=== PATIENT | female | born 1950 | race Two or more races ===

== ENCOUNTER 2017-06-20 09:30 | Emergency (ER) | payer MEDICARE, MEDICAID ==
[~2017-06-20] VITALS: Ht 154.9 cm; Wt 83.9 kg
[~2017-06-20 09:30] MED LIST: BENA20TA14; GEMF600T; HYDR-1421; METF-370; PRAVASTATIN
[2017-06-20 09:38] VITALS: BP 153/91
== END 2017-06-20 12:14 | disposition home or self-care (01) ==
LOC: ER 09:30
DX: J20.9 Acute bronchitis, unspecified (principal); I10 Essential (primary) hypertension; E11.9 Type 2 diabetes mellitus without complications; E78.5 Hyperlipidemia, unspecified
CPT/HCPCS: 71046

== ENCOUNTER 2018-07-12 12:12 | Emergency (ER) | payer MEDICARE, MEDICAID ==
[~2018-07-12] VITALS: Ht 167.6 cm; Wt 72.6 kg
[2018-07-12 13:26] VITALS: BP 114/56
[2018-07-12] MEDS ORDERED: MEPERIDINE HCL (50 MG/ML) 1 ML VIAL IM ONE (13:45)
[2018-07-12] MEDS ORDERED: PROMETHAZINE HCL 25 MG/ML 1ML IM ONE (13:45)
[2018-07-12] MEDS ORDERED: KETOROLAC TROMETH 60MG/2ML VIAL IM ONE (14:30)
== END 2018-07-12 14:37 | disposition home or self-care (01) ==
LOC: EDBD 12:12 → ER 12:13
DX: M54.5 Low back pain (principal); G89.29 Other chronic pain; E11.9 Type 2 diabetes mellitus without complications; E78.5 Hyperlipidemia, unspecified; I10 Essential (primary) hypertension
CPT/HCPCS: 96372; 99283; J1885; J2175; J2550

== ENCOUNTER 2022-10-27 16:43 | Emergency (ER) | payer MEDICARE, MEDICAID ==
[~2022-10-27] VITALS: Ht 154.9 cm; Wt 85.0 kg
[~2022-10-27 16:43] MED LIST changes: +BENA-36; -BENA20TA14
[2022-10-27 17:07] VITALS: BP 114/61
[2022-10-27] MEDS ORDERED: HYDR-4902 PO (18:13)
[2022-10-27] MEDS ORDERED: HYDROcodone-ACET 5/325MG TAB PO ONE (18:15)
== END 2022-10-27 18:29 | disposition home or self-care (01) ==
LOC: ER 16:43
DX: S82.832A Other fracture of upper and lower end of left fibula, initial encounter for closed fracture (principal); E11.9 Type 2 diabetes mellitus without complications; E78.5 Hyperlipidemia, unspecified; I10 Essential (primary) hypertension; G89.29 Other chronic pain; X50.9XXA Other and unspecified overexertion or strenuous movements or postures, initial encounter; Y93.01 Activity, walking, marching and hiking; Y92.89 Other specified places as the place of occurrence of the external cause; Y99.8 Other external cause status
CPT/HCPCS: 29515; 73610

== ENCOUNTER 2023-06-20 14:10 | Inpatient (IN) | payer MEDICARE, MEDICAID ==
[~2023-06-20] VITALS: Ht 154.9 cm; Wt 92.9 kg
[2023-06-20 14:56] LABS: Basophils # (auto) 0 10 ^3/uL (0-0.2); Eosinophils # (auto) 0.1 10 ^3/uL (0-0.8); Mean Corpuscular Volume 102.7 fL (80.0-100.0); Monocytes # (auto) 0.3 10 ^3/uL (0-1.3); Neutrophils # (auto) 3.7 10 ^3/uL (1.6-8.6); White Blood Cell 5.5 10^3/uL (4.4-10.8)
[2023-06-20 14:58] LABS: Basophils % (auto) 0.8 % (0.0-2.0); Eosinophils % (auto) 1.4 % (0.0-7.0); Hematocrit 39.7 % (36.0-46.0); Hemoglobin 13.2 g/dL (12.2-16.2); Lymphocytes # (auto) 1.4 10 ^3/uL (0.4-5.4); Lymphocytes % (auto) 25.3 % (10.0-50.0); Mean Corpuscular Hemoglobin 34.1 pg (28.0-32.0); Mean Corpuscular Hgb Conc. 33.2 g/dL (32.0-36.0); Neutrophils % (auto) 66.5 % (37.0-80.0); Nucleated Red Blood Cells % 0.2 %; Red Blood Cells 3.86 10^6/uL (4.0-5.20); Red Cell Distribution Width 13.7 % (11.8-14.3)
[2023-06-20 15:16] LABS: Chloride 108 mmol/L (98-107); Potassium 4.8 mmol/L (3.5-5.1); Sodium 139 mmol/L (136-145)
[2023-06-20 15:17] LABS: Anion Gap 3 (5-15); Calcium 9.8 mg/dL (8.5-10.1); Carbon Dioxide 28 mmol/L (20-30)
[2023-06-20 15:22] LABS: BUN/Creatinine Ratio 12.2 (10.0-20.0); Blood Urea Nitrogen 14 mg/dL (9-23); Glucose 143 mg/dL (74-106)
[2023-06-20] MEDS: ENOXAPARIN SOD 100 MG/1 ML SYRINGE SC ONE (18:16)
[2023-06-20] MEDS ORDERED: ACETAMINOPHEN 325 MG TAB PO PRN (19:15)
[2023-06-20] MEDS ORDERED: DEXTROSE (50%) 50ML SYRG IV PRN (19:15)
[2023-06-20 19:39] LABS: Triglycerides 237 mg/dL (< 150)
[2023-06-20 19:40] LABS: LDL Cholesterol 118 mg/dL (< 100)
[2023-06-20 19:41] LABS: Cholesterol 192 mg/dL (< 200); HDL Cholesterol 45 mg/dL (40-59)
[2023-06-20 21:19] VITALS: PULSE 75; RESP 17; O2SAT 92
[2023-06-20] MEDS: ACCU-CHEK COMFORT CURVE STRIP VI SCH (21:53)
[2023-06-20] MEDS: InsuLIN REG 1unit/0.01ml Soln (100units/ml) SC SCH (21:58)
[2023-06-20] MEDS: GEMFIBROZIL 600 MG TAB PO SCH (21:59)
[2023-06-20] MEDS: ENOXAPARIN SOD 80 MG/0.8ML SYRINGE SC SCH (21:59)
[2023-06-20 23:46] VITALS: BP 109/75; PULSE 68; RESP 18; TEMP 98.9; O2SAT 94
[2023-06-20] MEDS ORDERED: HYDR12.59 PO (23:54)
[2023-06-20] MEDS ORDERED: CYCL-611 PO (23:54)
[2023-06-20] MEDS ORDERED: DULO1CAP6 PO (23:54)
[2023-06-20] MEDS ORDERED: INSU1INJ19 SC (23:54)
[2023-06-20] MEDS ORDERED: [UNRECOGNIZED DRUG - CODE] PO (23:54)
[2023-06-20] MEDS ORDERED: ATEN50TA PO (23:54)
[2023-06-20] MEDS ORDERED: DICL75TA4 PO (23:54)
[2023-06-20] MEDS ORDERED: GABA800T97 PO (23:54)
[2023-06-20] MEDS ORDERED: LOS25T PO (23:54)
[2023-06-21] VITALS (7 sets, daily range): BP systolic 98–116; BP diastolic 53–75; PULSE 69–91; RESP 17–20; TEMP 97.4–98.6; O2SAT 90–97
[2023-06-21] MEDS: HYDROcodone-ACET 5/325MG TAB PO PRN (05:25)
[2023-06-21 07:40] LABS: Alanine Aminotransferase 34 U/L (7-40); Albumin 4.3 g/dL (3.2-4.8); Alkaline Phosphatase 100 U/L (46-116); Anion Gap 7 (5-15); Aspartate Aminotransferase 42 U/L (13-40); BUN/Creatinine Ratio 11.8 (10.0-20.0); Basophils # (auto) 0 10 ^3/uL (0-0.2); Basophils % (auto) 0.5 % (0.0-2.0); Blood Urea Nitrogen 15 mg/dL (9-23); Calcium 9.7 mg/dL (8.5-10.1); Carbon Dioxide 27 mmol/L (20-30); Chloride 108 mmol/L (98-107); Eosinophils # (auto) 0.1 10 ^3/uL (0-0.8); Glucose 126 mg/dL (74-106); Monocytes # (auto) 0.5 10 ^3/uL (0-1.3); Neutrophils # (auto) 2.6 10 ^3/uL (1.6-8.6); Nucleated Red Blood Cells % 0.2 %; Potassium 3.9 mmol/L (3.5-5.1); Sodium 142 mmol/L (136-145)
[2023-06-21 07:41] LABS: Bilirubin, Total 0.6 mg/dL (0.2-1.0); Total Protein 7.4 g/dL (5.7-8.2)
[2023-06-21 07:42] LABS: Eosinophils % (auto) 2.3 % (0.0-7.0); Hematocrit 38.5 % (36.0-46.0); Lymphocytes # (auto) 2.1 10 ^3/uL (0.4-5.4); Lymphocytes % (auto) 38.9 % (10.0-50.0); Mean Corpuscular Hemoglobin 34.6 pg (28.0-32.0); Mean Corpuscular Hgb Conc. 33.7 g/dL (32.0-36.0); Mean Corpuscular Volume 102.5 fL (80.0-100.0); Monocytes % (auto) 8.5 % (0.0-12.0); Neutrophils % (auto) 49.8 % (37.0-80.0); Red Blood Cells 3.75 10^6/uL (4.0-5.20); White Blood Cell 5.3 10^3/uL (4.4-10.8)
[2023-06-21] MEDS: IOHEXOL 350 MG/ML 100ML IJ ONE (08:50)
[2023-06-22] VITALS (7 sets, daily range): BP systolic 96–140; BP diastolic 67–94; PULSE 80–102; RESP 16–20; TEMP 97.4–98.6; O2SAT 92–96
[2023-06-22] MEDS: CYCLOBENZAPRINE HCL 10 MG TAB PO SCH (13:31)
[2023-06-22] MEDS: GABAPENTIN 400 MG CAP PO SCH (13:31)
[2023-06-22] MEDS: HYDROcodone-ACET 10/325MG TAB PO PRN (20:14)
[2023-06-22] MEDS: Diclofenac Sodium 75MG PO SCH (21:58)
[2023-06-22] MEDS: INSULIN LANTUS (GLARGINE) 1 /0.01ml (100units/ml) SC SCH (22:10)
[2023-06-23 05:00] VITALS: BP 93/66; PULSE 84; RESP 18; TEMP 98; O2SAT 92
[2023-06-23 08:20] VITALS: BP 97/59; PULSE 78; RESP 20; TEMP 98.2
[2023-06-23 09:06] VITALS: BP 97/59; PULSE 78; RESP 20; TEMP 98.2; O2SAT 96
[2023-06-23] MEDS: LOSARTAN POTASSIUM 25 MG TAB PO SCH (09:30)
[2023-06-23] MEDS: DULoxetine HCL 30 MG CAP PO SCH (09:31)
[2023-06-23] MEDS: ATENOLOL 50 MG TAB PO SCH (09:31)
[2023-06-23] MEDS: hydroCHLOROthiazide 25 MG TAB PO SCH (09:31)
[2023-06-23] MEDS ORDERED: BENAZEPRIL HCL 20 MG PO SCH (10:00)
[2023-06-23 12:34] VITALS: BP 117/60; PULSE 75; RESP 20; TEMP 98.4; O2SAT 90
[2023-06-23 19:30] VITALS: PULSE 81; RESP 16
[2023-06-23 22:00] VITALS: BP 105/59; PULSE 69; RESP 17; TEMP 97.8; O2SAT 93
[2023-06-24 05:00] VITALS: BP 95/61; PULSE 73; RESP 18; TEMP 98.1; O2SAT 91
[2023-06-24 08:00] VITALS: PULSE 66; RESP 18
[2023-06-24 09:00] VITALS: BP 118/68; PULSE 80; RESP 20; TEMP 98.5; O2SAT 92
[2023-06-24] MEDS ORDERED: APIX5TAB PO (11:17)
[2023-06-24] MEDS ORDERED: HYDR-4902 PO (11:43)
[2023-06-24 12:50] VITALS: BP 103/77; PULSE 68; RESP 20; TEMP 98
[2023-06-24] MEDS ORDERED: TRAM100T32 PO (16:17)
[2023-06-24 17:00] VITALS: BP 98/55; PULSE 84; RESP 18; TEMP 98.1; O2SAT 91
[2023-06-24] MEDS: ENOXAPARIN SOD 80 MG/0.8ML SYRINGE SC ONE (19:46)
[2023-06-24 19:54] VITALS: PULSE 70
[2023-06-24] MEDS ORDERED: APIXABAN 5 MG TAB PO ONE (22:00)
== END 2023-06-24 20:24 | disposition home health service (06) | DRG 197 ==
LOC: EDUNIT# 14:10 → EDBD 14:10 → ER 14:18 → WEST WING 19:03 → OVERFLOW 19:03 → WEST WING 23:12
PROVIDERS: ADMIT Nurse Practitioner Family; ATTEND Internal Medicine
DX: I82.443 Acute embolism and thrombosis of tibial vein, bilateral (principal); E11.9 Type 2 diabetes mellitus without complications; E66.01 Morbid (severe) obesity due to excess calories; E78.5 Hyperlipidemia, unspecified; G89.29 Other chronic pain; I10 Essential (primary) hypertension; Z68.38 Body mass index [BMI] 38.0-38.9, adult; Z79.899 Other long term (current) drug therapy; Z82.49 Family history of ischemic heart disease and other diseases of the circulatory system; Z83.3 Family history of diabetes mellitus; N18.31 Chronic kidney disease, stage 3a
CPT/HCPCS: 36415; 71275; 80048; 80053; 80061; 82962; 83036; 84443; 85025; 93970; 96372; 97163; G0378; J1815

== ENCOUNTER 2024-12-30 13:43 | Inpatient (IN) | payer MEDICARE, MEDICAID ==
[~2024-12-30] VITALS: Ht 154.9 cm; Wt 79.0 kg
[~2024-12-30 13:43] MED LIST changes: +APIX5TAB PO; +ATEN50TA PO; +CYCL-611 PO; +DICL75TA4 PO; +DULO1CAP6 PO; +GABA800T97 PO; -GEMF600T; +HYDR12.59 PO; +INSU1INJ19 SC; +LOS25T PO; -METF-370; -PRAVASTATIN; +TRAM100T32 PO; +[UNRECOGNIZED DRUG - CODE] PO
--- NOTE | 2024-12-30 14:13 | ED.PDOC ---
History of Present Illness HPI Comments This is a 74 years old female with past medical history of hypertension, type 2 diabetes mellitus, bilateral lower extremity DVT, liver cirrhosis, pulmonary fibrosis, degenerative disc disease, presented to the ED with a chief complaint of intermittent cough for last 2 months getting worse that prompted this visit. According to the daughter the patient has intermittent chronic cough for more than 2 months, initially was productive with phlegm which was whitish in color and later became dry cough went to the urgent care and was prescribed steroid and azithromycin but did not relieved the symptoms getting worse, the patient was desaturating in home to 89-90 that prompted this visit. The patient was diagnosed with pulmonary fibrosis 2 years ago but was not on any home oxygen and following stunt woman Dr. Young. She also complains of chest pain with heaviness in the chest, headache and blurred vision for last 2 days. She denies fever, chills, abdominal pain, nausea vomiting, positive sick contact or any changes in bowel and bladder habit. Chief Complaint: Cough Time Seen by MD: 13:44 Primary Care Provider: NONE Allergies: Coded Allergies: NO KNOWN ALLERGIES (Unverified , 02/09/10) Home Meds Active Scripts Tramadol Hcl (TRAMADOL HCL ER) 100 Mg Tab, 100 MG PO Q6HPRN PRN, #30 TAB Prov:ADELSO LISA MD 06/24/23 Apixaban Base (ELIQUIS) 5 Mg Tab, 5 MG PO BID, #60 TAB 5 Refills Prov:ADELSO LISA MD 06/24/23 Reported Medications Insulin Glargine (Basaglar Kwikpen) 100 Unit/Ml Inj, 15 UNITS SC HS 06/20/23 Buprenorphine HCl (Belbuca) 300 Mcg Mis, 1 STRIP PO BID 06/20/23 Cyclobenzaprine HCl (Cyclobenzaprine Hydrochlo) 10 Mg Tab, 1 TAB PO TID 06/20/23 Duloxetine HCl (Duloxetine HCl) 60 Mg Cap, 1 CAP PO DAILY 06/20/23 Gabapentin (Gabapentin) 800 Mg Tab, 1 TAB PO TID 06/20/23 Diclofenac Sodium (Diclofenac Sodium Dr) 75 Mg Tab, 1 TAB PO BID 06/20/23 Losartan Potassium (Losartan Potassium) 25 Mg Tab, 1 TAB PO DAILY 06/20/23 Atenolol (Atenolol) 50 Mg Tab, 1 TAB PO DAILY 06/20/23 Hydrochlorothiazide (Hydrochlorothiazide) 12.5 Mg Cap, 1 CAP PO DAILY 06/20/23 Benazepril Hcl (Benazepril Hcl) 20 Mg Tab, 1 DAILY 11/16/12 Hydrocodone-Acetaminophen (Vicodin) 1 Tab Tab 02/09/10 Mode of Arrival: Wheelchair Past Medical History PAST MEDICAL HISTORY: DM, High Lipids, HTN Past Medical History (Other): Pulmonary fibrosis, DVT Surgical History (Other): Back surgery 2 times 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 History Family History Family History: Family hx of DM, Family hx of Cancer, Family hx of heart vin, Family hx of HTN Family History (Other): Family history of pulmonary fibrosis Social History Smoker: Non-Smoker Alcohol: Denies ETOH Use Drugs: Denies Drug Use Lives In: Home Constitutional: reports: chills; denies: diaphoresis, fatigue, fever, malaise, sweats, weakness, others EENTM: reports: blurred vision; denies: double vision, ear bleeding, ear discharge, ear drainage, ear pain, ear ringing, eye pain, eye redness, hearing loss, mouth pain, mouth swelling, nasal discharge, nose bleeding, nose con gestion, nose pain, photophobia, tearing, throat pain, throat swelling, voice changes, others Respiratory: reports: cough, shortness of breath; denies: hemoptysis, orthopnea, SOB at rest, SOB with excertion, stridor, wheezing, others Cardiovascular: reports: chest pain; denies: dizzy spells, diaphoresis, Dyspnea on exertion, edema, irregular heart beat, left arm pain, lightheadedness, palpitations, PND, syncope, others Gastrointestinal: denies: abdomen distended, abdominal pain, blood streaked bowels, constipated, diarrhea, dysphagia, difficulty swallowing, hematemesis, melena, nausea, poor appetite, poor fluid intake, rectal bleeding, rectal pain, vomiting, others Genitourinary: denies: abnormal vagina bleeding, burning, dyspareunia, dysuria, flank pain, frequency, hematuria, incontinence, pain, , vagina discharge, urgency, others Neurological: denies: dizziness, fainting, headache, left sided numbness, left sided weakness, numbness, paresthesia, pre-existing deficit, right sided numbness, right sided weakness, seizure, speech problems, tingling, tremors, weakness, others Musculoskeletal: reports: back pain; denies: gout, joint pain, joint swelling, muscle pain, muscle stiffness, neck pain, others Integumetry: denies: bruises, change in color, change in hair/nails, dryness, laceration, lesions, lumps, rash, wounds, others Allergic/Immunocompromised: denies: Difficulty Healing, Frequent Infections, Hives, Itching, others Hematologic/Lymphatic: denies: anemia, blood clots, easy bleeding, easy bruising, swollen glands, others Endocrine: denies: excessive hunger, excessive sweating, excessive thirst, excessive urination, flushing, intolerance to cold, intolerance to heat, unexplained weight gain, unexplained weight loss, others Psychiatric: denies: anxiety, bipolar disorder, depression, hopeless, panic disorder, schizophrenia, sleepless, suicidal, others Physical Exam General Appearance: Mild Distress HEENT: Normal ENT Inspection, Pharynx Normal, TMs Normal Neck: Full Range of Motion, Non-Tender, Normal, Normal Inspection Respiratory: Normal Breath Sounds, Rales Cardiovascular: No Edema, No JVD, No Murmur, No Gallop, Normal Peripheral Pulses, Regular Rate/Rhythm Breast Exam: Deferred Gastrointestinal: No Organomegaly, Non Tender, No Pulsatile Mass, Normal Bowel Sounds, Soft Genitalia: Deferred Pelvic: Deferred Rectal: Deferred Extremities: NOT DONE Neurologic: NOT DONE Cerebellar Function: NOT DONE Reflexes: NOT DONE Skin: NOT DONE Peripheral Pulses: 2+ carotid (R), 2+ carotid (L), 2+ femoral (R), 2+ femoral (L), 2+ dorsalis pedis (R), 2+ dorsalis pedis (L), 2+ Radial (R), 2+ Radial (L), 2+ Brachial (R), 2+ Brachial (L) Lymphatic: NOT DONE Was a procedure done? 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1950 Requested By: FIONA LOU Order Number: [id number] Reading MD: Measurements Intervals Valentine Rate: 62 P: 49 LA: 149 QRS: -13 QRSD: 95 T: 56 QT: 405 QTc: 412 Interpretive Statements Sinus rhythm Differential Dx Considerations may include: Acute respiratory failure, chronic cough, bronchitis, pulmonary fibrosis X-Ray, Labs, Meds, VS Vital Signs Date Time Temp Pulse Resp B/P (MAP) Pulse Ox O2 Delivery O2 Flow Rate FiO2 12/30/24 14:33 16 94 Room Air* 0 21 12/30/24 13:58 62 12/30/24 13:47 20 95 Room Air* 0 21 12/30/24 13:47 98.2 77 18 102/72 95 98.2 Lab Test 12/30/24 14:22 Range/Units White Blood Count 7.6 4.4-10.8 10^3/uL Red Blood Count 4.40 4.0-5.20 10^6/uL Hemoglobin 15.5 12.2-16.2 g/dL Hematocrit 44.9 36.0-46.0 % Mean Corpuscular Volume 101.9 H 80.0-100.0 fL Mean Corpuscular Hemoglobin 35.3 H 28.0-32.0 pg Mean Corpuscular Hemoglobin Concent 34.6 32.0-36.0 g/dL Red Cell Distribution Width 14.2 11.8-14.3 % Platelet Count 203 140-450 10^3/uL Mean Platelet Volume 8.5 6.9-10.8 fL Neutrophils (%) (Auto) 37.0-80.0 % Lymphocytes (%) (Auto) 10.0-50.0 % Monocytes (%) (Auto) 0.0-12.0 % Basophils (%) (Auto) 0.0-2.0 % Neutrophils # (Auto) 1.6-8.6 10 ^3/uL Lymphocytes # (Auto) 0.4-5.4 10 ^3/uL Monocytes # (Auto) 0-1.3 10 ^3/uL Differential Total Cells Counted Pending Neutrophils % (Manual) Pending Band Neutrophils % (Manual) Pending Lymphocytes % (Manual) Pending Monocytes % (Manual) Pending Eosinophils % (Manual) Pending Basophils % (Manual) Pending Metamyelocytes % (manual) Pending Myelocytes % (Manual) Pending Promyelocytes % (Manual) Pending Blast Cells % (Manual) Pending Reactive Lymphocytes Pending Platelet Estimate Pending D-Dimer, Quantitative 2.58 H 0.0-0.49 mg/L FEU Sodium Level 140 136-145 mmol/L Potassium Level 4.8 3.5-5.1 mmol/L Chloride Level 103 98-107 mmol/L Carbon Dioxide Level 28 20-31 mmol/L Anion Gap 9 5-15 Blood Urea Nitrogen 36 H 9-23 mg/dL Creatinine 1.36 H 0.550-1.02 mg/dL Glomerular Filtration Rate Calc 41 >90 mL/min BUN/Creatinine Ratio 26.5 H 10.0-20.0 Serum Glucose 169 H 74-106 mg/dL Calcium Level 9.4 8.7-10.4 mg/dL Troponin I High Sensitivity < 3 L </=34 ng/L B-Type Natriuretic Peptide 45.15 0-100 pg/mL Current Medications Medications (Trade) Dose Ordered Sig/Carmina Route Start Time Stop Time Status Last Admin Albuterol (Ventolin Medneb) 2.5 mg ONCE ONCE NEB 12/30/24 14:15 12/30/24 14:16 DC 12/30/24 14:33 Ipratropium [place] (Atrovent Medneb) 0.5 mg ONCE ONCE NEB 12/30/24 14:15 12/30/24 14:16 DC 12/30/24 14:33 X-Ray, Labs, Meds, VS Comment CHEST RADIOGRAPH Indication: Cough Technique: Single frontal view of the chest was obtained COMPARISON: CT CT ANGIO CHEST CONTRAST on DOS: 06/21/23 FINDINGS: Lines and Tubes: None Lungs: Clear Pleura: No effusion. No pneumothorax. Cardiomediastinal contours: Unremarkable Bones: Unremarkable IMPRESSION: No acute disease. Images Reviewed?: Images reviewed and evaluated by me Time of 1ST Reevaluation: 15:30 Reevaluation 1ST: Unchanged Patient Education/Counseling: Diagnosis, Treatment Family Education/Counseling: Diagnosis, Treatment Comments 74 years old female with past medical history of pulmonary hip fibrosis, DVT presented to the ED with a chief complaint of chronic cough initially was productive now dry for last 8 weeks. The patient initial saturation was 94% on room air Jelly treated with breathing treatment and Solu-Medrol IV 40 mg once EKG showed sinus rhythm CBC demonstrated macrocytosis. BNP revealed elevated BUN creatinine, possibly JR on CKD baseline serum creatinine is 1.15 Chest x-ray demonstrated normal study Pending COVID and flu test Ordered high-resolution CT chest for further evaluation of pulmonary fibrosis The patient's symptoms did not improve after breathing treatment and Solu-Me drol. Patient need to be admitted for ongoing care in inpatient for further evaluation of chronic cough. SEPSIS Sepsis Screen Date sepsis recognized/suspect: Dec 30, 2024 Time Sepsis recognized/suspect: 1350 Recent Procedure: No On Antibiotic Therapy: No Respiratory Rate >20: No Heart Rate >90: No Temp<36 C (96.8 F) or >38.3 C: No SBP <90 or MAP <65 mmHG: No New Acute Mental Status Change: No Is the patient on CPAP, BIPAP,: No Physician Orders Complete Blood Count (12/30/24 14:09) Chest Portable (12/30/24 14:09) Urinalysis (12/30/24 14:09) Covid19 Antigen Ashley (12/30/24 ) Rapid Influenza A&B (12/30/24 14:09) Manual Differential (12/30/24 14:22) Hi-Resolution Chest Ct (12/30/24 15:31) Vital Signs Date Time Temp Pulse Resp B/P (MAP) Pulse Ox O2 Delivery O2 Flow Rate FiO2 12/30/24 14:33 16 94 Room Air* 0 21 12/30/24 13:58 62 12/30/24 13:47 20 95 Room Air* 0 21 12/30/24 13:47 98.2 77 18 102/72 95 98.2 Laboratory Tests Test 12/30/24 14:22 White Blood Count 7.6 10^3/uL (4.4-10.8) Medications Medications Dose Ordered Sig/Carmina Route Start Time Stop Time Status Last Admin Dose Admin Albuterol 2.5 mg ONCE ONCE NEB 12/30/24 14:15 12/30/24 14:16 DC 12/30/24 14:33 Ipratropium [place] 0.5 mg ONCE ONCE NEB 12/30/24 14:15 12/30/24 14:16 DC 12/30/24 14:33 Departure 1 Departure Time of Disposition: 15:46 Impression: Primary Impression: Chronic bronchitis Additional Impression: Pulmonary fibrosis Disposition: 30 STILL A PATIENT Admit to: Med Surg Condition: Guarded Critical Care Note Critical Care Time?: No Stability Stability form required: FIONA Larkin RESIDENT Dec 30, 2024 14:13
[2024-12-30] MEDS: IPRATROPIUM BROM 0.5 MG/2.5ML INH SOL NEB ONE (14:33)
[2024-12-30] MEDS: ALBUTEROL SULF 2.5 MG/0.5ML(0.5%) NEB SOLN NEB ONE (14:33)
--- NOTE | 2024-12-30 14:41 | DVH ---
CHEST RADIOGRAPH Indication: Cough Technique: Single frontal view of the chest was obtained COMPARISON: CT CT ANGIO CHEST CONTRAST on DOS: 06/21/23 FINDINGS: Lines and Tubes: None Lungs: Clear Pleura: No effusion. No pneumothorax. Cardiomediastinal contours: Unremarkable Bones: Unremarkable IMPRESSION: No acute disease.
[2024-12-30 14:52] LABS: Chloride 103 mmol/L (98-107); Potassium 4.8 mmol/L (3.5-5.1); Sodium 140 mmol/L (136-145)
[2024-12-30 14:53] LABS: Anion Gap 9 (5-15); Carbon Dioxide 28 mmol/L (20-31)
[2024-12-30 14:54] LABS: Calcium 9.4 mg/dL (8.7-10.4)
[2024-12-30 14:59] LABS: BUN/Creatinine Ratio 26.5 (10.0-20.0); Hematocrit 44.9 % (36.0-46.0); Hemoglobin 15.5 g/dL (12.2-16.2); Mean Corpuscular Hemoglobin 35.3 pg (28.0-32.0); Mean Corpuscular Volume 101.9 fL (80.0-100.0)
[2024-12-30 15:00] LABS: Blood Urea Nitrogen 36 mg/dL (9-23); Glucose 169 mg/dL (74-106)
--- NOTE | 2024-12-30 15:04 | ECG ---
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
[2024-12-30 15:35] LABS: Total Cells Counted 100.0 (100)
[2024-12-30 15:36] LABS: Macrocytosis Slight
[2024-12-30] MEDS: methylPREDNISolone SOD SUCC 40 MG/ML VL IV ONE (16:07)
--- NOTE | 2024-12-30 16:17 | DVH ---
EXAM: CT HI-RESOLUTION CHEST CT History: Chronic cough, history of pulmonary fibrosis Comparison Study: XY CHEST PORTABLE on DOS: 12/30/24, CT CT ANGIO CHEST CONTRAST on DOS: 06/21/23 TECHNIQUE: Multidetector CT of the chest was performed. Imaging was performed without IV contrast. Ax ial, coronal, and sagittal multiplanar reformats were obtained from the axial data set by the technol ogbeto. Radiation Dose : CTDI vol 16.41 mGy, DLP 997.14 mGy*cm. Findings: Lungs: The lungs are clear. No definite evidence of scarring or emphysema. Pleura: Unremarkable Heart/Great vessels: No cardiomegaly or pericardial effusion. Enlarged pulmonary arteries and main pu lmonary trunk. Mediastinum: Unremarkable Soft tissues/Bones: Mild multilevel degenerative changes of the thoracic spine. 1.2 cm left adrenal nodule. Nodular hepatic contour. Impression: 1. No acute cardiopulmonary disease. 2. Enlarged pulmonary arteries and main pulmonary trunk. Correlate for pulmonary artery hypertension .
--- NOTE | 2024-12-30 17:09 | DVHPNRES ---
Progress Note Date Seen: Dec 30, 2024 Resident Creating Document: DENIZ KNIGHT RESIDENT Subjective Review of Systems This is a 74 years old female with past medical history of hypertension, type 2 diabetes mellitus, bilateral lower extremity DVT, liver cirrhosis?, mild pulmonary fibrosis, degenerative disc disease, presented to the ED with a chief complaint of intermittent cough for last 2 months getting worse that prompted this visit. The patient also complains of tightness in the chest and shortness of breath for the last 2 days. The chest pain not radiating to the right or the jaw. According to the daughter the patient has intermittent chronic cough for more than 2 months, initially was productive with phlegm which was milky whitish in color and later became dry cough. The patient went to see her editor sound last week who prescribed azithromycin and steroids which helped improve the symptoms. The patient was desaturating at home to 89-90 that prompted this visit. She denies fever, chills, abdominal pain, nausea vomiting, positive sick contact or any changes in bowel and bladder habit. 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 Patient is alert and oriented to time, place person and responding to all questions. Eyes: No Pain, No Conjunctivae inflammation, No Eyelid inflammation, No Other, No Redness ENT: No Ear pain, No Ear discharge, No Nose pain, No Nose discharge, No Nose congestion, No Mouth pain, No Mouth swelling, No Throat pain, No Throat swelling, No Other Cardiovascular: Chest Pain, No Palpitations, No Orthopnea, No Paroxysmal dyspnea No Edema, No Lt Headedness, No Other Respiratory: Cough with sputum, SOB with exertion, No Wheezing, No Hemoptysis, No Pleuritic Pain, No Other Gastrointestinal: No Nausea, No Vomiting, No Abdominal Pain, No Diarrhea, No Constipation, No Melena, No Hematochezia, No Other Genitourinary: No Dysuria, No Frequency, No Incontinence, No Hematuria, No Retention, No Other General Appearance: Cooperative. Well developed. Well nourished. NAD Head Exam: Normal inspection Neck Exam: Normal inspection. Non-tender. Normal alignment Pulmonary/Respiratory: Chest non tender, bilateral rhonchi, no crackles, no wheezing. Cardiovascular/Chest: Regular rate and rhythm. No murmurs. No JVD. Peripheral Pulses: 2+ Radial (R). 2+ Radial (L). 2+ Pedal (R). 2+ Pedal (L) Abdominal Exam: Normal bowel sounds. Soft. normal abdomen, no visible veins, Nontender. No hepatospenomegaly. No masses Ankle Exam: Negative ankle edema Lower extremities: Negative lower extremity edema Neuro/Mental Status: A&O x4. Coherent. Thoughts/Psych: Normal thought pattern. Appropriate mood and affect. Good judgement and insight Skin Exam: Normal inspection. Normal color. Warm. 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
[2024-12-30] MEDS ORDERED: ALBUTEROL SULF 2.5 MG/0.5ML(0.5%) NEB SOLN NEB PRN (17:15)
[2024-12-30] MEDS: IPRATROPIUM BROM 0.5 MG/2.5ML INH SOL ONE (17:47)
[2024-12-30] MEDS: SODIUM CHLORIDE 0.9% 250 ML IV ONE (17:50)
[2024-12-30 17:54] VITALS: PULSE 68; RESP 18; O2SAT 95
[2024-12-30] MEDS: IPRATROPIUM BROM 0.5 MG/2.5ML INH SOL NEB SCH (17:54)
[2024-12-30] MEDS ORDERED: POLYETHYLENE GLYCOL 17 GM PWDR PO ONE (18:00)
[2024-12-30] MEDS ORDERED: POLYETHYLENE GLYCOL 17 GM PWDR PO PRN (18:00)
[2024-12-30] MEDS ORDERED: DOCUSATE SOD 100 MG CAP PO PRN (18:00)
[2024-12-30 18:06] VITALS: PULSE 70; RESP 18; O2SAT 100
[2024-12-30 18:08] VITALS: BP 117/81; PULSE 68; RESP 18; TEMP 99; O2SAT 95
--- NOTE | 2024-12-30 18:21 | DVHHPRES ---
History of Present Illness Resident Creating Document: DENIZ KNIGHT RESIDENT History of Present Illness This is a 74 years old female with past medical history of hypertension, type 2 diabetes mellitus, bilateral lower extremity DVT, liver cirrhosis?, mild pulmonary fibrosis, degenerative disc disease, presented to the ED with a chief complaint of intermittent cough for last 2 months getting worse that prompted this visit. The patient also complains of tightness in the chest and shortness of breath for the last 2 days. The chest pain not radiating to the right or the jaw. According to the daughter the patient has intermittent chronic cough for more than 2 months, initially was productive with phlegm which was milky whitish in color and later became dry cough. The patient went to see her typesetters printer last week who prescribed azithromycin and steroids which helped improve the symptoms. The patient was desaturating at home to 89-90 that prompted this visit. She denies fever, chills, abdominal pain, nausea vomiting, positive sick contact or any changes in bowel and bladder habit. Review of Systems Review of Systems Eyes: No Pain, No Conjunctivae inflammation, No Eyelid inflammation, No Other, No Redness ENT: No Ear pain, No Ear discharge, No Nose pain, No Nose discharge, No Nose congestion, No Mouth pain, No Mouth swelling, No Throat pain, No Throat swelling, No Other Cardiovascular: Chest Pain, No Palpitations, No Orthopnea, No Paroxysmal dyspnea No Edema, No Lt Headedness, No Other Respiratory: Cough with sputum, SOB with exertion, No Wheezing, No Hemoptysis, No Pleuritic Pain, No Other Gastrointestinal: No Nausea, No Vomiting, No Abdominal Pain, No Diarrhea, No Constipation, No Melena, No Hematochezia, No Other Genitourinary: No Dysuria, No Frequency, No Incontinence, No Hematuria, No Retention, No Other Allergies: Coded Allergies: NO KNOWN ALLERGIES (Unverified , 02/09/10) Medications Current Medications Medications Dose Ordered Sig/Carmina Route Start Time Stop Time Status Last Admin Dose Admin Ipratropium Cushman 0.5 mg Q6HR NEB 12/30/24 17:15 12/30/24 17:54 0.5 MG Albuterol 2.5 mg Q4HPRN PRN NEB 12/30/24 17:15 Docusate Sodium 100 mg BIDPRN PRN PO 12/30/24 18:00 Polyethylene Glycol 17 gm DAILYPRN PRN PO 12/30/24 18:00 UNV Pantoprazole Sodium 40 mg DAILY@0600 PO 12/31/24 06:00 UNV Exam Vital Signs Vital Signs Date Time Temp Pulse Resp B/P (MAP) Pulse Ox O2 Delivery O2 Flow Rate FiO2 12/30/24 18:08 99.0 68 18 117/81 95 99.0 12/30/24 17:54 Room Air* 0 21 Exam General Appearance: Cooperative. Well developed. Well nourished. NAD Head Exam: Normal inspection Neck Exam: Normal inspection. Non-tender. Normal alignment Pulmonary/Respiratory: Chest non tender, bilateral rhonchi, no crackles, no wheezing. Cardiovascular/Chest: Regular rate and rhythm. No murmurs. No JVD. Peripheral Pulses: 2+ Radial (R). 2+ Radial (L). 2+ Pedal (R). 2+ Pedal (L) Abdominal Exam: Normal bowel sounds. Soft. normal abdomen, no visible veins, Nontender. No hepatospenomegaly. No masses Ankle Exam: Negative ankle edema Lower extremities: Negative lower extremity edema Neuro/Mental Status: A&O x4. Coherent. Thoughts/Psych: Normal thought pattern. Appropriate mood and affect. Good judgement and insight Skin Exam: Normal inspection. Normal color. Warm. Dry Labs/Xrays Labs Test 12/30/24 14:22 Range/Units White Blood Count 7.6 4.4-10.8 10^3/uL Red Blood Count 4.40 4.0-5.20 10^6/uL Hemoglobin 15.5 12.2-16.2 g/dL Hematocrit 44.9 36.0-46.0 % Mean Corpuscular Volume 101.9 H 80.0-100.0 fL Mean Corpuscular Hemoglobin 35.3 H 28.0-32.0 pg Mean Corpuscular Hemoglobin Concent 34.6 32.0-36.0 g/dL Red Cell Distribution Width 14.2 11.8-14.3 % Platelet Count 203 140-450 10^3/uL Mean Platelet Volume 8.5 6.9-10.8 fL Neutrophils (%) (Auto) 37.0-80.0 % Lymphocytes (%) (Auto) 10.0-50.0 % Monocytes (%) (Auto) 0.0-12.0 % Basophils (%) (Auto) 0.0-2.0 % Neutrophils # (Auto) 1.6-8.6 10 ^3/uL Lymphocytes # (Auto) 0.4-5.4 10 ^3/uL Monocytes # (Auto) 0-1.3 10 ^3/uL Differential Total Cells Counted 100.0 100 Neutrophils % (Manual) 68 37.0-80.0 Band Neutrophils % (Manual) 5 Lymphocytes % (Manual) 19 10.0-50.0 Monocytes % (Manual) 6 0-12 Eosinophils % (Manual) 0 0-7 Basophils % (Manual) 0 0.0-2.0 Metamyelocytes % (manual) 0 Myelocytes % (Manual) 1 Promyelocytes % (Manual) 0 Blast Cells % (Manual) 0 Reactive Lymphocytes 1 Platelet Estimate Adequate Clumped Platelets Few Macrocytosis Slight D-Dimer, Quantitative 2.58 H 0.0-0.49 mg/L FEU Sodium Level 140 136-145 mmol/L Potassium Level 4.8 3.5-5.1 mmol/L Chloride Level 103 98-107 mmol/L Carbon Dioxide Level 28 20-31 mmol/L Anion Gap 9 5-15 Blood Urea Nitrogen 36 H 9-23 mg/dL Creatinine 1.36 H 0.550-1.02 mg/dL Glomerular Filtration Rate Calc 41 >90 mL/min BUN/Creatinine Ratio 26.5 H 10.0-20.0 Serum Glucose 169 H 74-106 mg/dL Calcium Level 9.4 8.7-10.4 mg/dL Troponin I High Sensitivity < 3 L </=34 ng/L B-Type Natriuretic Peptide 45.15 0-100 pg/mL SEPSIS Sepsis Screen Date sepsis recognized/suspect: Dec 30, 2024 Time Sepsis recognized/suspect: 1350 Recent Procedure: No On Antibiotic Therapy: No Respiratory Rate >20: No Heart Rate >90: No Temp<36 C (96.8 F) or >38.3 C: No SBP <90 or MAP <65 mmHG: No New Acute Mental Status Change: No Is the patient on CPAP, BIPAP,: No Physician Orders Chest Portable (12/30/24 14:09) Urinalysis (12/30/24 14:09) Covid19 Antigen Ashley (12/30/24 ) Rapid Influenza A&B (12/30/24 14:09) Hi-Resolution Chest Ct (12/30/24 15:31) Admit (12/30/24 17:05) Code Status (12/30/24 17:05) Vital Signs .PER UNIT PROTOCOL (12/30/24 17:05) Review Orders With Adm. (12/30/24 17:05) Notify Md Of Changes From Base (12/30/24 17:05) Advance Directive (12/30/24 17:05) Patient Condition (12/30/24 17:05) Allergies (12/30/24 17:05) Oxygen By Nasal Cannula (12/30/24 17:05) Stat Ekg For Chest Pain (12/30/24 17:05) Ipratropium Medneb (Atrovent Medneb) (12/30/24 17:15) Albuterol Medneb (Ventolin Medneb) (12/30/24 17:15) Echo 2d Mode Cardiac Dop (12/30/24 17:05) Urine Sodium (12/30/24 17:05) Urine Creatinine (12/30/24 17:05) Rapid Influenza A&B (12/30/24 17:47) Hemoglobin A1c (12/30/24 17:47) Docusate Sodium Capsule (Colace Capsule) (12/30/24 18:00) Polyethylene Glycol 17g Powder (Miralax (12/30/24 18:00) Polyethylene Glycol 17g Powder (Miralax (12/30/24 18:00) Basic Metabolic Panel (12/31/24 04:00) Complete Blood Count (12/31/24 04:00) Pantoprazole Tablet (Protonix Tablet) (12/31/24 06:00) Vital Signs Date Time Temp Pulse Resp B/P (MAP) Pulse Ox O2 Delivery O2 Flow Rate FiO2 12/30/24 18:08 99.0 68 18 117/81 95 99.0 12/30/24 18:06 70 18 100 12/30/24 17:54 95 Room Air* 0 21 12/30/24 17:54 95 0.0 12/30/24 17:54 68 18 95 12/30/24 16:07 74 18 93 Room Air 12/30/24 16:07 99.0 74 18 117/81 (93) 93 99.0 12/30/24 14:33 16 94 Room Air* 0 21 12/30/24 13:58 62 12/30/24 13:47 20 95 Room Air* 0 21 12/30/24 13:47 98.2 77 18 102/72 95 98.2 Laboratory Tests Test 12/30/24 14:22 White Blood Count 7.6 10^3/uL (4.4-10.8) Medications Medications Dose Ordered Sig/Carmina Route Start Time Stop Time Status Last Admin Dose Admin Albuterol 2.5 mg ONCE ONCE NEB 12/30/24 14:15 12/30/24 14:16 DC 12/30/24 14:33 2.5 MG Ipratropium Cushman 0.5 mg ONCE ONCE NEB 12/30/24 14:15 12/30/24 14:16 DC 12/30/24 14:33 0.5 MG Ipratropium Cushman 0.5 mg Q6HR NEB 12/30/24 17:15 12/30/24 17:54 0.5 MG Methylprednisolone Sodium Succinate 40 mg ONCE ONCE IV 12/30/24 14:15 12/30/24 14:16 DC 12/30/24 16:07 40 MG Assessment/Plan Assessment/Plan #copd exacerbation # Hx of idiopathic pulmonary fibrosis - ipratropium and albuterol med nebs - HRCT: enlarged pulmonary trunk - ordered echocardiogram #JR likely hemodynamically mediated/VMN on ?CKD GFR stable in 40-50's over last 6 months - IV NS 250cc bolus #T2DM - mild s/s # essential hypertension - essential hyoertension #constipation, likely slow transit - colace - miralax DVT ppx: lovenox Goals of care discussed for >20 mins with patient and daughter; full code Plan discussed with Dr. Esteban Plan discussed with: Patient, Daughter, Other (rn) My Orders Orders - DENIZ KNIGHT RESIDENT Procedure Category Date Status Time Rapid Influenza A&B LAB 12/30/24 Logged 17:47 Hemoglobin A1c LAB 12/30/24 In Process 17:47 Docusate Sodium PHA 12/30/24 In Process Capsule (Colace 18:00 Polyethylene Glycol PHA 12/30/24 Logged 17g Powder (Miralax 18:00 Polyethylene Glycol PHA 12/30/24 Logged 17g Powder (Miralax 18:00 Basic Metabolic Panel LAB 12/31/24 Verified 04:00 Complete Blood Count LAB 12/31/24 Verified 04:00 Pantoprazole Tablet PHA 12/31/24 Logged (Protonix Tablet) 06:00 DENIZ KNIGHT RESIDENT Dec 30, 2024 18:21 MIRANDA LEE RESIDENT Dec 30, 2024 19:28
[2024-12-30] MEDS ORDERED: DEXTROSE (50%) 50ML SYRG IV PRN (18:30)
[2024-12-30 19:51] LABS: COVID19 ANTIGEN SOFIA FIA NEGATIVE (NEGATIVE)
[2024-12-30] MEDS ORDERED: ACCU-CHEK COMFORT CURVE STRIP VI SCH (20:00)
[2024-12-30] MEDS ORDERED: InsuLIN REG 1unit/0.01ml Soln (100units/ml) SC SCH (20:00)
[2024-12-31] MEDS ORDERED: PANTOPRAZOLE 40 MG TAB PO SCH (06:00)
[2024-12-31] MEDS ORDERED: ENOXAPARIN SOD 40 MG/0.4 ML SYRINGE SC SCH (10:00)
--- NOTE | 2024-12-31 11:43 | DVHDSRES ---
Discharge Summary Date of Admission Resident Creating Document: DENIZ KNIGHT RESIDENT Dec 30, 2024 at 17:05 Date of Discharge: Dec 31, 2024 Admitting Diagnosis SHORTNESS OF BREATH, ?COPD EXACERBATION Labs/Diagnostic Data: Laboratory Results Test 12/30/24 18:20 12/30/24 14:22 Influenza Type A Antigen Negative (Negative) Influenza Type B Antigen Negative (Negative) SARS-CoV-2 Antigen (Rapid) Negative (NEGATIVE) White Blood Count 7.6 10^3/uL (4.4-10.8) Red Blood Count 4.40 10^6/uL (4.0-5.20) Hemoglobin 15.5 g/dL (12.2-16.2) Hematocrit 44.9 % (36.0-46.0) Mean Corpuscular Volume 101.9 fL (80.0-100.0) Mean Corpuscular Hemoglobin 35.3 pg (28.0-32.0) Mean Corpuscular Hemoglobin Concent 34.6 g/dL (32.0-36.0) Red Cell Distribution Width 14.2 % (11.8-14.3) Platelet Count 203 10^3/uL (140-450) Mean Platelet Volume 8.5 fL (6.9-10.8) Neutrophils (%) (Auto) % (37.0-80.0) Lymphocytes (%) (Auto) % (10.0-50.0) Monocytes (%) (Auto) % (0.0-12.0) Basophils (%) (Auto) % (0.0-2.0) Neutrophils # (Auto) 10 ^3/uL (1.6-8.6) Lymphocytes # (Auto) 10 ^3/uL (0.4-5.4) Monocytes # (Auto) 10 ^3/uL (0-1.3) Differential Total Cells Counted 100.0 (100) Neutrophils % (Manual) 68 (37.0-80.0) Band Neutrophils % (Manual) 5 Lymphocytes % (Manual) 19 (10.0-50.0) Monocytes % (Manual) 6 (0-12) Eosinophils % (Manual) 0 (0-7) Basophils % (Manual) 0 (0.0-2.0) Metamyelocytes % (manual) 0 Myelocytes % (Manual) 1 Promyelocytes % (Manual) 0 Blast Cells % (Manual) 0 Reactive Lymphocytes 1 Platelet Estimate Adequate Clumped Platelets Few Macrocytosis Slight D-Dimer, Quantitative 2.58 mg/L FEU (0.0-0.49) Sodium Level 140 mmol/L (136-145) Potassium Level 4.8 mmol/L (3.5-5.1) Chloride Level 103 mmol/L (98-107) Carbon Dioxide Level 28 mmol/L (20-31) Anion Gap 9 (5-15) Blood Urea Nitrogen 36 mg/dL (9-23) Creatinine 1.36 mg/dL (0.550-1.02) Glomerular Filtration Rate Calc 41 mL/min (>90) BUN/Creatinine Ratio 26.5 (10.0-20.0) Serum Glucose 169 mg/dL (74-106) Hemoglobin A1c 5.5 % A1C (<5.7) Calcium Level 9.4 mg/dL (8.7-10.4) Troponin I High Sensitivity < 3 ng/L (</=34) B-Type Natriuretic Peptide 45.15 pg/mL (0-100) Other Laboratory Tests 12/30/24 14:22 Brief Hx & Hospital Course: This was a 74 years old female with past medical history of hypertension, type 2 diabetes mellitus, bilateral lower extremity DVT, liver cirrhosis?, mild pulmonary fibrosis, degenerative disc disease, presented to the ED with a chief complaint of intermittent cough for last 2 months getting worse that prompted this visit. The patient also complained of tightness in the chest and shortness of breath for the last 2 days, not radiating to the right arm or the jaw. According to the daughter the patient has intermittent chronic cough for more than 2 months, initially was productive with phlegm which was milky whitish in color and later became dry cough. The patient went to see her sewer bricklayer last week who prescribed azithromycin and steroids which helped improve the symptoms. The patient was desaturating at home to 89-90 that prompted this visit. She denied fever, chills, abdominal pain, nausea vomiting, positive sick contact or any changes in bowel and bladder habit. Bilateral rhonchi could be heard. She was stable on room air. Patient left AMA. 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 on ?CKD GFR stable in 40-50's over last 6 months - IV NS 250cc bolus #T2DM # essential hypertension #constipation, likely slow transit - colace - miralax Discharge Disposition: AMA Discharge Instruct/Medications Scheduled Apixaban Base (Eliquis), 5 MG PO BID Atenolol (Atenolol), 1 TAB PO DAILY, (Reported) Benazepril Hcl (Benazepril Hcl), 1 DAILY, (Reported) Buprenorphine HCl (Belbuca), 1 STRIP PO BID, (Reported) Cyclobenzaprine HCl (Cyclobenzaprine Hydrochlo), 1 TAB PO TID, (Reported) Diclofenac Sodium (Diclofenac Sodium Dr), 1 TAB PO BID, (Reported) Duloxetine HCl (Duloxetine HCl), 1 CAP PO DAILY, (Reported) Gabapentin (Gabapentin), 1 TAB PO TID, (Reported) Hydrochlorothiazide (Hydrochlorothiazide), 1 CAP PO DAILY, (Reported) Insulin Glargine (Basaglar Kwikpen), 15 UNITS SC HS, (Reported) Losartan Potassium (Losartan Potassium), 1 TAB PO DAILY, (Reported) Scheduled PRN Tramadol Hcl (Tramadol Hcl Er), 100 MG PO Q6HPRN PRN Miscellaneous Medications Hydrocodone-Acetaminophen (Vicodin), (Reported) Discharge Statement: "Patient was advised to return to the ER or call 911 if any headaches, dizziness, shortness of breath, chest pain, abdominal pain, bleeding, fevers, or worsening of medical condition. Patient was counseled about treatment plan, medications, possible side effects, patientverbalized understanding. All questions were answered to the best of my ability. This discharge took greater then 30 minutes in planning, reviewing documentation, counseling the patient, and discussing with other team members." ASSESSMENT ASSESSMENT Assessment DENIZ KNIGHT RESIDENT Dec 31, 2024 11:43
== END 2024-12-31 00:30 | disposition left against medical advice (07) | DRG 190 ==
LOC: ER 13:43 → OVERFLOW 17:05
PROVIDERS: ATTEND Emergency Medicine
DX: J44.1 Chronic obstructive pulmonary disease with (acute) exacerbation (principal); N17.0 Acute kidney failure with tubular necrosis; J84.112 Idiopathic pulmonary fibrosis; K74.60 Unspecified cirrhosis of liver; N18.9 Chronic kidney disease, unspecified; E11.22 Type 2 diabetes mellitus with diabetic chronic kidney disease; I12.9 Hypertensive chronic kidney disease with stage 1 through stage 4 chronic kidney disease, or unspecified chronic kidney disease; Z20.822 Contact with and (suspected) exposure to COVID-19; K59.01 Slow transit constipation; Z86.718 Personal history of other venous thrombosis and embolism; Z83.3 Family history of diabetes mellitus; Z82.49 Family history of ischemic heart disease and other diseases of the circulatory system
CPT/HCPCS: 36415; 71045; 71250; 80048; 83036; 83880; 84484; 85007; 85027; 85379; 87426; 87804; 93005; 94640; 96361; 96374; G0378